=== PATIENT | female | born 1960 | race Caucasian/White ===

== ENCOUNTER 2020-09-05 11:19 | Outpatient (CLI) | payer OTHER, SELFPAY ==
--- NOTE | ~2020-09-05 | XR_ITS ---
XR ribs RT 2V DATE: 09/05/2020 11:58 INDICATION: Right lateral rib pain TECHNIQUE: 4 views of right rib cage COMPARISON: None FINDINGS: No fracture or bone destruction of the right ribs is evident. No underlying pulmonary infil trate or consolidation, pleural effusion or pneumothorax. There is dextroscoliosis of the thoracic spine. Diffuse osteopenia. IMPRESSION: No right rib fracture or bone destruction Osteopenia Dextroscoliosis of the thoracic spine Reviewed, dictated and finalized at location A. DENT CARE COORDINATOR
--- NOTE | ~2020-09-05 | XR_ITS ---
XR_CERV2-3V_CR DATE: 09/05/2020 11:57 INDICATION: Neck and back pain, right lateral rib pain TECHNIQUE: AP, open-mouth, lateral views COMPARISON: None FINDINGS: C1 and C2 are normally aligned and the odontoid process is intact. No fracture or dislocation or locked facet or prevertebral soft tissue swelling. There is mild loss of interspace height at C5-6. IMPRESSION: Mild loss of interspace height at C5-6 Reviewed, dictated and finalized at [facility]. Reviewed, dictated and finalized at location A. WORKER RICE
--- NOTE | ~2020-09-05 | XR_ITS ---
XR thoracic spine 3V DATE: 09/05/2020 11:58 INDICATION: Chronic back pain, right lateral rib pain TECHNIQUE: AP, lateral, coned lateral lumbosacral views COMPARISON: None FINDINGS: Moderate thoracic scoliosis. No fracture or dislocation or bone destruction. The thoracic pedicles are intact. No paraspinal soft tissue thickening. Diffuse osteopenia. IMPRESSION: Scoliosis and osteopenia Reviewed, dictated and finalized at location A. ASSEMBLER IMPRESSION: Scoliosis and osteopenia
== END 2020-09-05 11:20 | disposition home or self-care (01) ==
PROVIDERS: PCP Internal Medicine; Visit Provider Internal Medicine
DX: M54.6 Pain in thoracic spine (principal); M54.2 Cervicalgia; R07.89 Other chest pain
CPT/HCPCS: 71100; 72040; 72072

== ENCOUNTER 2023-07-14 12:31 | Emergency (ER) | payer OTHER, SELFPAY ==
--- NOTE | 2023-07-14 12:35 | ED.EYEPROB ---
HPI - Eye Problem General Chief complaint: Eye Problems Stated complaint: conjunctivitis Time Seen by Provider: 07/14/23 13:11 Source: patient and RN notes reviewed Mode of arrival: ambulatory Limitations: no limitations History of Present Illness HPI Narrative: 62-year-old female presents with concern for bilateral itchy, watery, peak eyes. Reports started 1 week ago. Reports a room matted shut when she woke up this morning. She reports she has had some cold symptoms that she has been taking DayQuil for with relief. chief complaint: eye redness Related Data Allergies Allergy/AdvReac Type Severity Reaction Status Date / Time latex Allergy Unknown Rash Unverified 07/14/23 12:37 Review of Systems Review of Systems: CONSTITUTIONAL: Denies malaise, chills, sweats, or fever. EYES: Denies visual changes. Reports bilateral redness, irritation, discharge. ENT: Denies rhinorrhea, congestion, sinus pain, otalgia or sore throat. SKIN: Denies rash or itching. NEUROLOGIC: Denies numbness, weakness, or headache. PSYCHIATRIC: Denies anxiety or depression. All systems reviewed & are unremarkable except as noted in HPI and below PMFSH Comments At time of signature, agree with nursing past medical, surgical, social and family history. There is no relevant family history pertinent to the presenting complaint Exam Narrative: GENERAL: Well-appearing, well-nourished, and in no acute distress. HEAD: Normocephalic, atraumatic. EYES: PERRLA and EOMI. No nystagmus. Bilateral conjunctivae sclera and injected. Upper and lower eyelid unremarkable, no periorbital edema noted ENT: Nares clear, turbinates pink, no rhinorrhea or epistaxis. Mucous membranes moist. TM pearly still with sharp light reflex bilaterally; no tragal tenderness. NECK: Supple. CHEST: No respiratory distress. Speaks in full sentences. HEART: Regular rate and rhythm. SKIN: Warm, dry, no visible rash. NEURO: Alert and oriented x3. PSYCH: Normal mood and affect Course Course Emergency Course: Patient is aware of diagnosis, understands and agrees to treatment plan. Anticipatory guidance given. Patient agrees to follow-up as directed and is aware of reasons to seek care at the emergency department. Portions of this record may have been created with voice recognition software Level of Care: Express Care Visit Vital Signs Vital signs: Reviewed. MDM - Eye Problem MDM Narrative Medical decision making narrative: Consideration of the following conditions may be warranted for the presenting problem, they are not final diagnoses: Bacterial conjunctivitis, allergic conjunctivitis, viral conjunctivitis, foreign body, blepharitis, chalazion, hordeolum, corneal abrasion, preseptal cellulitis, orbital cellulitis. No evidence of proptosis, ophthalmoplegia, vision loss, pain with eye movement. Exam findings show no acute concerns or changes; patient is non-toxic appearing and is in no distress. Patient is appropriate for outpatient treatment and follow-up. Critical Care Time Critical Care Time Critical Care Time: No Discharge Plan Discharge Clinical Impression: Conjunctivitis Patient Disposition: Home, Self-Care Condition: Stable Instructions: Conjunctivitis (ED) Additional Instructions: Do not touch or rub your eye. Use a warm or cool washcloth on your eye for comfort Use eyedrops as directed Practice good handwashing and hygiene to prevent spread of infection You may take Tylenol or ibuprofen for pain Follow-up with PCP or dials inspector if condition is not improving in 2-3days. Go to the emergency room if you have pain behind your eye, pressure behind your eye, difficulty seeing, or other severe symptoms Prescriptions: New polymyxin B sulf-trimethoprim 10,000 unit- 1 mg/mL drops 1 drp EACH EYE Q3H 7 Days Qty: 10 0RF Rx Instructions: while awake; do not exceed 6 doses in 24 hours Follow-up/Referrals: Cyndie Alfaro MD [[facility]
[2023-07-14 12:36] VITALS: BP 96/70; PULSE 71; RESP 16; TEMP 36.5; O2SAT 100
== END 2023-07-14 13:27 | disposition home or self-care (01) ==
PROVIDERS: Emergency Provider Nurse Practitioner; PCP Internal Medicine
DX: H10.9 Unspecified conjunctivitis (principal)
CPT/HCPCS: 99213; G0463